=== PATIENT | female | born 1995 | race African-American/Black ===

== ENCOUNTER 2016-10-01 14:16 | Emergency (ER) | payer OTHER, BC ==
[~2016-10-01] VITALS: Ht 165.1 cm; Wt 59.0 kg
[~2016-10-01 14:16] MED LIST: KEFLEX250 MG/5 M PO; MOTRIN600 MG PO; ZOFRAN ODT4 MG PO
[2016-10-01 15:37] VITALS: BP 128/84
== END 2016-10-01 15:37 | disposition home or self-care (01) ==
LOC: EME 14:16
DX: S20.319A Abrasion of unspecified front wall of thorax, initial encounter (principal); V49.40XA Driver injured in collision with unspecified motor vehicles in traffic accident, initial encounter; Z88.1 Allergy status to other antibiotic agents
CPT/HCPCS: 99281; 99284

== ENCOUNTER 2017-04-01 19:51 | Emergency (ER) | payer OTHER ==
[~2017-04-01] VITALS: Ht 165.1 cm; Wt 59.1 kg
[2017-04-01 23:19] LABS: HEMATOCRIT 34.7 % (36.0-46.0); MCH 27.7 PG (29.0-34.0); MCHC 32.3 G/DL (30.0-36.0); MCV 85.9 FL (83-99); MEAN PLAT.VOLUME 10.5 uM^3 (9.5-12.4); PLATELET COUNT 248 K/uL (156-360); RBC DIS.WIDTH-CV 12.8 % (11.8-14.6); RBC DIS.WIDTH-SD 39.9 % (39-53); RED BLOOD COUNT 4.04 M/uL (3.80-5.20); WHITE BLOOD COUNT 12.6 K/uL (4.1-10.2)
[2017-04-01 23:28] LABS: CHLORIDE 108 mEq/L (99-109); POTASSIUM 3.5 mEq/L (3.7-5.4); SODIUM 136 mEq/L (136-147)
[2017-04-01 23:30] LABS: GLUCOSE 95 mg/dL (70-99)
[2017-04-01 23:31] LABS: ANION GAP 7 MEQ/L (2-14)
[2017-04-01 23:32] LABS: TOTAL BILIRUBIN 0.4 mg/dL (0.0-1.0)
[2017-04-01 23:33] LABS: ALKALINE PHOSPHATASE 42 IU/L (3-129)
[2017-04-01 23:34] LABS: GFR ESTIMATE (CALCULATED) > 59 mL/min/
[2017-04-01 23:35] LABS: UREA NITROGEN (BUN) 4 mg/dL (9-23)
[2017-04-01 23:59] LABS: QUANTITATIVE HCG 117392.7 MIU/ML
[2017-04-02 00:25] VITALS: BP 120/81
== END 2017-04-02 00:25 | disposition home or self-care (01) ==
LOC: EME 19:51
PROVIDERS: Physician Assistant
DX: O98.511 Other viral diseases complicating pregnancy, first trimester (principal); B34.9 Viral infection, unspecified; Z3A.10 10 weeks gestation of pregnancy; Z88.0 Allergy status to penicillin
CPT/HCPCS: 71020; 80053; 84702; 85027; 87651 90; 93005; 99281; 99284

== ENCOUNTER 2017-04-18 19:22 | Emergency (ER) | payer BC, OTHER ==
[~2017-04-18] VITALS: Ht 165.1 cm; Wt 59.9 kg
[2017-04-18] MEDS ORDERED: BENADRYL25 MG PO (22:47)
[2017-04-18] MEDS ORDERED: PEPCID20 MG PO (22:47)
[2017-04-18 22:58] VITALS: BP 114/61
== END 2017-04-18 22:59 | disposition home or self-care (01) ==
LOC: EME 19:22 → RME 19:22
DX: O9A.211 Injury, poisoning and certain other consequences of external causes complicating pregnancy, first trimester (principal); T78.40XA Allergy, unspecified, initial encounter; Z3A.13 13 weeks gestation of pregnancy; O99.341 Other mental disorders complicating pregnancy, first trimester; F32.9 Major depressive disorder, single episode, unspecified; Z88.1 Allergy status to other antibiotic agents
CPT/HCPCS: 99281; 99284

== ENCOUNTER 2017-04-28 10:52 | Emergency (ER) | payer OTHER ==
[~2017-04-28] VITALS: Ht 165.1 cm; Wt 58.7 kg
[~2017-04-28 10:52] MED LIST changes: +BENADRYL25 MG PO; +PEPCID20 MG PO
[2017-04-28 11:21] LABS: ADD MIUA? YES; BILIRUBIN NEGATIVE; BLOOD SMALL; COLOR YELLOW ((YELLOW)); GLUCOSE (STRIP) NEGATIVE; KETONES NEGATIVE; LEUKOCYTES MODERATE; NITRITE NEGATIVE; PROTEIN (STRIP) 30; SPECIFIC GRAVITY 1.015 (1.000-1.030); UROBILINOGEN 0.2 MG/DL (0.2-1.0)
[2017-04-28 11:39] LABS: BACTERIA 1+ /HPF; CASTS NONE SEEN /LPF; EPITHELIAL CELLS 2+ /HPF; MUCUS NONE SEEN /LPF; RED BLOOD CELLS 0-5 /HPF (0-5); UCUL ADDED? YES
[2017-04-28 11:40] LABS: AMORPHOUS PHOSPHATE CRYSTALS 2+; CRYSTALS PRESENT
[2017-04-28 12:03] LABS: MCH 27.7 PG (29.0-34.0); MCHC 32.4 G/DL (30.0-36.0); MCV 85.5 FL (83-99); MEAN PLAT.VOLUME 10.5 uM^3 (9.5-12.4); PLATELET COUNT 263 K/uL (156-360); RBC DIS.WIDTH-CV 13.2 % (11.8-14.6); RED BLOOD COUNT 3.86 M/uL (3.80-5.20); WHITE BLOOD COUNT 9.4 K/uL (4.1-10.2)
[2017-04-28 12:18] LABS: CHLORIDE 107 mEq/L (99-109); SODIUM 138 mEq/L (136-147)
[2017-04-28 12:20] LABS: GLUCOSE 83 mg/dL (70-99)
[2017-04-28 12:21] LABS: ANION GAP 8 MEQ/L (2-14)
[2017-04-28 12:22] LABS: TOTAL BILIRUBIN 0.4 mg/dL (0.0-1.0)
[2017-04-28 12:23] LABS: ALKALINE PHOSPHATASE 45 IU/L (3-129)
[2017-04-28 12:24] LABS: GFR ESTIMATE (CALCULATED) > 59 mL/min/
[2017-04-28 12:25] LABS: UREA NITROGEN (BUN) 5 mg/dL (9-23)
[2017-04-28 12:49] LABS: QUANTITATIVE HCG 70197.1 MIU/ML
[2017-04-28 13:54] VITALS: BP 108/57
== END 2017-04-28 13:54 | disposition home or self-care (01) ==
LOC: EME 10:52
PROVIDERS: Nurse Practitioner Family
DX: O20.0 Threatened abortion (principal); Z3A.15 15 weeks gestation of pregnancy; O99.342 Other mental disorders complicating pregnancy, second trimester; F32.9 Major depressive disorder, single episode, unspecified; Z88.1 Allergy status to other antibiotic agents
CPT/HCPCS: 76805; 80053; 81003; 84702; 85027; 86900; 86901; 87086; 99281; 99284

== ENCOUNTER 2017-05-08 17:30 | Emergency (ER) | payer OTHER ==
[~2017-05-08] VITALS: Ht 165.1 cm; Wt 58.4 kg
[2017-05-08 20:52] VITALS: BP 127/69
== END 2017-05-08 20:52 | disposition home or self-care (01) ==
LOC: EME 17:30
DX: J02.9 Acute pharyngitis, unspecified (principal); H92.03 Otalgia, bilateral; R42 Dizziness and giddiness
CPT/HCPCS: 87651 90; 99281; 99283

== ENCOUNTER 2017-05-11 21:39 | Emergency (ER) | payer SELFPAY ==
[~2017-05-11] VITALS: Ht 167.6 cm; Wt 59.6 kg
[2017-05-11 22:38] LABS: HEMATOCRIT 29.7 % (36.0-46.0); HEMOGLOBIN 9.6 G/DL (11.9-15.5); MCH 27.9 PG (29.0-34.0); MCHC 32.3 G/DL (30.0-36.0); MCV 86.3 FL (83-99); PLATELET COUNT 225 K/uL (156-360); RBC DIS.WIDTH-CV 13.5 % (11.8-14.6); RBC DIS.WIDTH-SD 42.1 % (39-53); RED BLOOD COUNT 3.44 M/uL (3.80-5.20); WHITE BLOOD COUNT 9.1 K/uL (4.1-10.2)
[2017-05-11 22:49] LABS: ALBUMIN 3.6 g/dL (3.2-4.8); CHLORIDE 108 mEq/L (99-109); POTASSIUM 3.7 mEq/L (3.7-5.4); SODIUM 137 mEq/L (136-147)
[2017-05-11 22:52] LABS: GLUCOSE 82 mg/dL (70-99); TOTAL PROTEIN 6.5 g/dL (6.4-8.3)
[2017-05-11 22:54] LABS: TOTAL BILIRUBIN 0.3 mg/dL (0.0-1.0)
[2017-05-11 22:55] LABS: ALKALINE PHOSPHATASE 36 IU/L (3-129); CREATININE 0.6 mg/dL (0.6-1.3); GFR ESTIMATE (CALCULATED) > 59 mL/min/
[2017-05-11 22:56] LABS: UREA NITROGEN (BUN) 8 mg/dL (9-23)
[2017-05-11 22:57] LABS: AST (GOT) 24 IU/L (2-34)
[2017-05-11 22:58] LABS: ALT (GPT) 28 IU/L (3-49)
[2017-05-11 23:02] LABS: APPEARANCE CLOUDY ((CLEAR)); BILIRUBIN NEGATIVE; BLOOD NEGATIVE; COLOR YELLOW ((YELLOW)); GLUCOSE (STRIP) NEGATIVE; KETONES NEGATIVE; LEUKOCYTES LARGE; NITRITE NEGATIVE; PROTEIN (STRIP) NEGATIVE; SPECIFIC GRAVITY 1.016 (1.000-1.030); UROBILINOGEN 0.2 MG/DL (0.2-1.0)
[2017-05-11 23:07] LABS: BACTERIA RARE /HPF; EPITHELIAL CELLS 2+ /HPF; MUCUS TRACE /LPF; RED BLOOD CELLS 0-5 /HPF (0-5); UCUL ADDED? YES
[2017-05-11 23:23] LABS: QUANTITATIVE HCG 35593.5 MIU/ML
[2017-05-12] MEDS ORDERED: MACROBID100 MG PO (01:13)
[2017-05-12] MEDS ORDERED: PERCOCET 5/31 TABLET PO (01:13)
[2017-05-12] MEDS ORDERED: [UNRECOGNIZED DRUG - REMARK] (01:15)
[2017-05-12 01:52] VITALS: BP 114/67
== END 2017-05-12 01:54 | disposition home or self-care (01) ==
LOC: EME 21:39
PROVIDERS: Physician Assistant
DX: O23.42 Unspecified infection of urinary tract in pregnancy, second trimester (principal); N13.30 Unspecified hydronephrosis; O99.012 Anemia complicating pregnancy, second trimester; Z3A.17 17 weeks gestation of pregnancy; O99.342 Other mental disorders complicating pregnancy, second trimester; F32.9 Major depressive disorder, single episode, unspecified; Z88.0 Allergy status to penicillin
CPT/HCPCS: 76805; 80053; 81003; 84702; 85027; 87086; 99281; 99284

== ENCOUNTER 2017-05-26 18:04 | Emergency (ER) | payer OTHER ==
[~2017-05-26] VITALS: Ht 162.6 cm; Wt 58.4 kg
[~2017-05-26 18:04] MED LIST changes: +MACROBID100 MG PO; +PERCOCET 5/31 TABLET PO; +[UNRECOGNIZED DRUG - REMARK]
[2017-05-26 19:33] LABS: HEMATOCRIT 30.7 % (36.0-46.0); HEMOGLOBIN 9.8 G/DL (11.9-15.5); MCH 27.8 PG (29.0-34.0); MCHC 31.9 G/DL (30.0-36.0); MCV 87.2 FL (83-99); PLATELET COUNT 227 K/uL (156-360); RBC DIS.WIDTH-CV 13.9 % (11.8-14.6); RBC DIS.WIDTH-SD 43.9 % (39-53); RED BLOOD COUNT 3.52 M/uL (3.80-5.20); WHITE BLOOD COUNT 7.1 K/uL (4.1-10.2)
[2017-05-26 19:43] LABS: ALBUMIN 3.9 g/dL (3.2-4.8); CHLORIDE 107 mEq/L (99-109); POTASSIUM 3.6 mEq/L (3.7-5.4); SODIUM 137 mEq/L (136-147)
[2017-05-26 19:46] LABS: GLUCOSE 79 mg/dL (70-99); TOTAL PROTEIN 7.3 g/dL (6.4-8.3)
[2017-05-26 19:48] LABS: TOTAL BILIRUBIN 0.2 mg/dL (0.0-1.0)
[2017-05-26 19:49] LABS: ALKALINE PHOSPHATASE 40 IU/L (3-129); CREATININE 0.6 mg/dL (0.6-1.3); GFR ESTIMATE (CALCULATED) > 59 mL/min/
[2017-05-26 19:50] LABS: UREA NITROGEN (BUN) 4 mg/dL (9-23)
[2017-05-26 19:51] LABS: AST (GOT) 37 IU/L (2-34)
[2017-05-26 19:52] LABS: ALT (GPT) 32 IU/L (3-49)
[2017-05-26 20:19] LABS: QUANTITATIVE HCG 31694.6 MIU/ML
[2017-05-26 20:28] LABS: APPEARANCE CLOUDY ((CLEAR)); BILIRUBIN NEGATIVE; BLOOD NEGATIVE; COLOR YELLOW ((YELLOW)); GLUCOSE (STRIP) NEGATIVE; KETONES 20; LEUKOCYTES LARGE; NITRITE NEGATIVE; PROTEIN (STRIP) 30; SPECIFIC GRAVITY 1.013 (1.000-1.030)
[2017-05-26 20:41] LABS: BACTERIA 2+ /HPF; EPITHELIAL CELLS 3+ /HPF; MUCUS NONE SEEN /LPF; RED BLOOD CELLS 0-5 /HPF (0-5); UCUL ADDED? YES; WHITE BLOOD CELLS 20-30 /HPF (0-5)
[2017-05-26 20:42] LABS: AMORPHOUS PHOSPHATE CRYSTALS 1+
[2017-05-26] MEDS ORDERED: KEFLEX500 MG PO (20:52)
[2017-05-26 22:12] VITALS: BP 105/59
== END 2017-05-26 22:13 | disposition home or self-care (01) ==
LOC: EME 18:04
DX: O23.42 Unspecified infection of urinary tract in pregnancy, second trimester (principal); O99.512 Diseases of the respiratory system complicating pregnancy, second trimester; J06.9 Acute upper respiratory infection, unspecified; Z3A.19 19 weeks gestation of pregnancy; O99.342 Other mental disorders complicating pregnancy, second trimester; F32.9 Major depressive disorder, single episode, unspecified; Z88.1 Allergy status to other antibiotic agents
CPT/HCPCS: 80053; 81003; 84702; 85027; 87086; 99281; 99284

== ENCOUNTER 2017-07-16 20:56 | Outpatient (CLI) | payer OTHER ==
[~2017-07-16] VITALS: Ht 162.6 cm; Wt 62.0 kg
[~2017-07-16 20:56] MED LIST changes: +KEFLEX500 MG PO
[2017-07-16 21:16] VITALS: BP 120/63
[2017-07-16] MEDS ORDERED: PRENATA CHEWAB1 EACH PO (21:38)
[2017-07-16 23:07] VITALS: BP 105/64
== END 2017-07-17 04:00 | disposition home or self-care (01) ==
LOC: LDRP-OP 20:56 → 2WEST 20:58
DX: O36.8120 Decreased fetal movements, second trimester, not applicable or unspecified (principal); Z3A.26 26 weeks gestation of pregnancy; O98.312 Other infections with a predominantly sexual mode of transmission complicating pregnancy, second trimester; A59.9 Trichomoniasis, unspecified; O98.812 Other maternal infectious and parasitic diseases complicating pregnancy, second trimester; B37.3 Candidiasis of vulva and vagina; Z87.891 Personal history of nicotine dependence
CPT/HCPCS: 59025; G0378; J7120; S0030

== ENCOUNTER 2017-08-14 17:40 | Outpatient (CLI) | payer OTHER ==
[~2017-08-14 17:40] MED LIST changes: +PRENATA CHEWAB1 EACH PO
[2017-08-14 17:54] VITALS: BP 103/63
[2017-08-14 18:46] LABS: AMPHETAMINE NEGATIVE (500 ng/mL); BARBITURATES NEGATIVE (200 ng/mL); BENZODIAZEPINES NEGATIVE (150 ng/mL); BUPRENORPHINE NEGATIVE (10 ng/mL); COCAINE NEGATIVE (150 ng/mL); METHADONE NEGATIVE (200 ng/mL); METHAMPHETAMINE NEGATIVE (500 ng/mL); OPIATES (MORPHINE) NEGATIVE (100 ng/mL); OXYCODONE NEGATIVE (100 ng/mL); PHENCYCLIDINE NEGATIVE (25 ng/mL); PROPOXYPHENE NEGATIVE (300 ng/mL); THC CANNABINOIDS NEGATIVE (50 ng/mL); TRICYCLIC ANTIDEPRESSANTS NEGATIVE (300 ng/mL)
[2017-08-14 18:59] LABS: APPEARANCE SL.HAZY ((CLEAR)); BILIRUBIN NEGATIVE; BLOOD NEGATIVE; COLOR YELLOW ((YELLOW)); GLUCOSE (STRIP) NEGATIVE; KETONES NEGATIVE; LEUKOCYTES LARGE; NITRITE NEGATIVE; PROTEIN (STRIP) NEGATIVE; SPECIFIC GRAVITY 1.011 (1.000-1.030); UROBILINOGEN 0.2 MG/DL (0.2-1.0)
[2017-08-14 19:30] LABS: BACTERIA RARE /HPF; EPITHELIAL CELLS 1+ /HPF; MUCUS TRACE /LPF; RED BLOOD CELLS 0-5 /HPF (0-5); UCUL ADDED? YES; WHITE BLOOD CELLS 15-20 /HPF (0-5)
== END 2017-08-14 19:50 | disposition home or self-care (01) ==
LOC: LDRP-OP → 2WEST 17:42 → LDRP-OP 11-20 04:30
PROVIDERS: Advanced Practice Midwife
DX: O26.893 Other specified pregnancy related conditions, third trimester (principal); R10.2 Pelvic and perineal pain; Z3A.30 30 weeks gestation of pregnancy
CPT/HCPCS: 59025; 81003; 87086; G0378

== ENCOUNTER 2017-08-28 21:01 | Outpatient (CLI) | payer OTHER ==
[2017-08-28 21:15] VITALS: BP 114/70
== END 2017-08-28 22:15 | disposition home or self-care (01) ==
LOC: LDRP-OP → 2WEST 21:02 → LDRP-OP 11-20 22:06
DX: O26.893 Other specified pregnancy related conditions, third trimester (principal); R10.2 Pelvic and perineal pain; O99.343 Other mental disorders complicating pregnancy, third trimester; F32.9 Major depressive disorder, single episode, unspecified; O99.89 Other specified diseases and conditions complicating pregnancy, childbirth and the puerperium; N13.30 Unspecified hydronephrosis; Z86.19 Personal history of other infectious and parasitic diseases; Z3A.32 32 weeks gestation of pregnancy
CPT/HCPCS: 59025; G0378

== ENCOUNTER 2017-09-25 17:04 | Outpatient (CLI) | payer OTHER ==
[2017-09-25 17:10] VITALS: BP 119/74
[2017-09-25 18:01] LABS: SOURCE SWAB
[2017-09-25 18:11] LABS: APPEARANCE SL.HAZY ((CLEAR)); BILIRUBIN NEGATIVE; BLOOD NEGATIVE; COLOR YELLOW ((YELLOW)); GLUCOSE (STRIP) NEGATIVE; KETONES NEGATIVE; LEUKOCYTES MODERATE; NITRITE NEGATIVE; PROTEIN (STRIP) NEGATIVE; SPECIFIC GRAVITY 1.015 (1.000-1.030); UROBILINOGEN 0.2 MG/DL (0.2-1.0)
[2017-09-25 18:14] LABS: BACTERIA RARE /HPF; EPITHELIAL CELLS RARE /HPF; MUCUS TRACE /LPF; RED BLOOD CELLS 0-5 /HPF (0-5); UCUL ADDED? NO; WHITE BLOOD CELLS 0-5 /HPF (0-5)
[2017-09-25 20:24] LABS: CANDIDA DNA PROBE POSITIVE; GARDNERELLA DNA PROBE POSITIVE; TRICHOMONAS DNA PROBE NEGATIVE
== END 2017-09-25 19:35 | disposition home or self-care (01) ==
LOC: LDRP-OP 17:04 → 2WEST 17:05 → LDRP-OP 11-20 22:31
PROVIDERS: Midwife; Nurse Practitioner Family
DX: O26.893 Other specified pregnancy related conditions, third trimester (principal); Z3A.36 36 weeks gestation of pregnancy; R10.9 Unspecified abdominal pain
CPT/HCPCS: 59025; 81003; 87086; 87480; 87491; 87510; 87591; 87660; G0378

== ENCOUNTER 2017-10-08 15:09 | Outpatient (CLI) | payer OTHER ==
[~2017-10-08] VITALS: Ht 162.6 cm; Wt 66.8 kg
== END 2017-10-08 16:55 | disposition home or self-care (01) ==
LOC: LDRP-OP 15:09 → 2WEST 15:10 → LDRP-OP 11-20 21:29
DX: O47.1 False labor at or after 37 completed weeks of gestation (principal); Z3A.38 38 weeks gestation of pregnancy
CPT/HCPCS: 59025; G0378

== ENCOUNTER 2017-10-09 14:10 | Outpatient (CLI) | payer OTHER ==
[2017-10-09 14:35] VITALS: BP 110/61
== END 2017-10-09 18:20 | disposition home or self-care (01) ==
LOC: LDRP-OP 14:10 → 2WEST 14:11 → LDRP-OP 11-20 18:37
DX: O47.1 False labor at or after 37 completed weeks of gestation (principal); Z3A.38 38 weeks gestation of pregnancy
CPT/HCPCS: 59025; G0378

== ENCOUNTER 2017-10-14 00:08 | Inpatient (IN) | payer OTHER ==
[~2017-10-14] VITALS: Ht 165.1 cm; Wt 67.7 kg
[2017-10-14] VITALS (14 sets, daily range): BP systolic 108–129; BP diastolic 61–80
[2017-10-14 05:33] LABS: BASOPHIL (%) 0.3 % (0-1); BASOPHIL COUNT 0.1 K/uL (0-0.1); EOSINOPHIL (%) 0.1 % (0-5); HEMATOCRIT 34.2 % (36.0-46.0); IMMATURE GRANULOCYTE (%) 1.5 % (0.0-0.7); LYMPHOCYTE (%) 7.4 % (15-42); LYMPHOCYTE COUNT 1.3 K/uL (1.0-2.8); MCHC 32.2 G/DL (30.0-36.0); MONOCYTE (%) 6.8 % (3-12); MONOCYTE COUNT 1.2 K/uL (0-0.8); NEUTROPHIL (%) 83.9 % (45-76); NEUTROPHIL COUNT 14.2 K/uL (1.8-6.4); PLATELET COUNT 209 K/uL (156-360); RBC DIS.WIDTH-CV 14.1 % (11.8-14.6); RBC DIS.WIDTH-SD 42.7 % (39-53); RED BLOOD COUNT 4.07 M/uL (3.80-5.20); WHITE BLOOD COUNT 16.9 K/uL (4.1-10.2)
[2017-10-14] MEDS ORDERED: IBUPROFEN800 MG PO (07:22)
[2017-10-14] MEDS ORDERED: EXPECTA PRENAT1 EACH PO (07:59)
[2017-10-14] MEDS ORDERED: IRON325 M1 PO (08:00)
[2017-10-14 13:48] LABS: AMPHETAMINE NEGATIVE (500 ng/mL); BARBITURATES NEGATIVE (200 ng/mL); BENZODIAZEPINES NEGATIVE (150 ng/mL); BUPRENORPHINE NEGATIVE (10 ng/mL); COCAINE NEGATIVE (150 ng/mL); METHADONE NEGATIVE (200 ng/mL); METHAMPHETAMINE NEGATIVE (500 ng/mL); OPIATES (MORPHINE) NEGATIVE (100 ng/mL); OXYCODONE NEGATIVE (100 ng/mL); PHENCYCLIDINE NEGATIVE (25 ng/mL); PROPOXYPHENE NEGATIVE (300 ng/mL); THC CANNABINOIDS NEGATIVE (50 ng/mL); TRICYCLIC ANTIDEPRESSANTS NEGATIVE (300 ng/mL)
[2017-10-15 07:38] VITALS: BP 128/51
[2017-10-15 14:50] VITALS: BP 119/72
[2017-10-16 07:17] VITALS: BP 104/66
== END 2017-10-16 10:27 | disposition home or self-care (01) | DRG 775 ==
LOC: LDRP-OP → 2WEST 00:09 → LDRP-OP 11-20 18:26
PROVIDERS: Midwife
DX: O99.824 Streptococcus B carrier state complicating childbirth (principal); O70.0 First degree perineal laceration during delivery; O99.344 Other mental disorders complicating childbirth; F32.9 Major depressive disorder, single episode, unspecified; Z3A.39 39 weeks gestation of pregnancy; Z37.0 Single live birth
CPT/HCPCS: 85025; J0595; J3370; J7120

== ENCOUNTER → 2017-10-28 | Outpatient (CLI) | payer OTHER ==
[~2017-10-28] MED LIST changes: +EXPECTA PRENAT1 EACH PO; +IBUPROFEN800 MG PO; +IRON325 M1 PO
== END | disposition home or self-care (01) ==
LOC: NUC 10:52
DX: N13.30 Unspecified hydronephrosis (principal)
CPT/HCPCS: 78709; A9562; J1940

== ENCOUNTER 2017-12-25 02:12 | Emergency (ER) | payer OTHER ==
[~2017-12-25] VITALS: Ht 162.6 cm; Wt 62.4 kg
[2017-12-25 03:04] LABS: HEMOGLOBIN 10.5 G/DL (11.9-15.5); MCH 25.9 PG (29.0-34.0); MCHC 30.9 G/DL (30.0-36.0); MCV 83.7 FL (83-99); PLATELET COUNT 263 K/uL (156-360); RBC DIS.WIDTH-CV 14.6 % (11.8-14.6); RBC DIS.WIDTH-SD 44.8 % (39-53); RED BLOOD COUNT 4.06 M/uL (3.80-5.20); WHITE BLOOD COUNT 6.7 K/uL (4.1-10.2)
[2017-12-25 03:12] LABS: CHLORIDE 111 mEq/L (99-109)
[2017-12-25 03:13] LABS: POTASSIUM 3.9 mEq/L (3.7-5.4); SODIUM 141 mEq/L (136-147)
[2017-12-25 03:14] LABS: GLUCOSE 98 mg/dL (70-99)
[2017-12-25 03:18] LABS: CREATININE 0.8 mg/dL (0.6-1.3); GFR ESTIMATE (CALCULATED) > 59 mL/min/
[2017-12-25 03:19] LABS: UREA NITROGEN (BUN) 15 mg/dL (9-23)
[2017-12-25 03:25] LABS: APPEARANCE CLEAR ((CLEAR)); BILIRUBIN NEGATIVE; BLOOD MODERATE; COLOR YELLOW ((YELLOW)); GLUCOSE (STRIP) NEGATIVE; KETONES NEGATIVE; LEUKOCYTES LARGE; NITRITE NEGATIVE; PROTEIN (STRIP) 30; SPECIFIC GRAVITY 1.027 (1.000-1.030); UROBILINOGEN 0.2 MG/DL (0.2-1.0)
[2017-12-25 03:36] LABS: BACTERIA NONE SEEN /HPF; EPITHELIAL CELLS 1+ /HPF; MUCUS TRACE /LPF; UCUL ADDED? YES; WHITE BLOOD CELLS 15-20 /HPF (0-5)
[2017-12-25] MEDS ORDERED: ZOFRAN4 MG PO (03:47)
[2017-12-25 04:19] VITALS: BP 114/72
== END 2017-12-25 04:15 | disposition home or self-care (01) ==
LOC: EME 02:12
PROVIDERS: Emergency Medicine
DX: T43.225A Adverse effect of selective serotonin reuptake inhibitors, initial encounter (principal); R11.0 Nausea; F32.9 Major depressive disorder, single episode, unspecified; Z87.891 Personal history of nicotine dependence; Z88.0 Allergy status to penicillin
CPT/HCPCS: 80048; 81003; 85027; 87086; 99281; 99284